=== PATIENT | male | born 1985 | race Asian ===

== ENCOUNTER → 2016-10-02 | Outpatient (CLI) | payer BC ==
--- NOTE | 2016-10-02 10:49 | RAD ---
CT of the abdomen and pelvis without contrast, 10/02/2016: History: Left flank pain Noncontrast scans were obtained through the urinary tract utilizing the renal stone protocol. This is a limited study for evaluation of the possibility of urinary tract calculi. Comparison is made to a study from 01/15/2016. A tiny 2 mm intrarenal calculus is again noted on the right. No left renal calculi are seen. The renal collecting systems are not dilated. The upper ureters are unremarkable. The distal ureters cannot be clearly traced through the pelvis in this patient. No radiopacity is seen along the course of either ureter to suggest a ureteral calculus. The partially filled urinary bladder is unremarkable. The unopacified liver is unremarkable. No dense gallstones are seen. The pancreas cannot be clearly from adjacent unopacified bowel. The spleen is within normal limits in size. The uterus is retroverted. A small amount of free fluid is present in the pelvis. This amount of fluid can be on a physiologic basis. The bowel loops are not dilated. The appendix is not clearly visualized, however, no dilated appendix is seen. Several small mesenteric lymph nodes are identified without pathologic enlargement. No free air is evident in the abdomen or pelvis. IMPRESSION: 1. Single small nonobstructing right intrarenal calculus. 2. No obstructing urinary tract calculi are identified. 3. Trace amount of free fluid in the pelvis. PQRS Compliance Statement: One or more of the following individualized dose reduction techniques were utilized for this examination: 1. Automated exposure control 2. Adjustment of the mA and/or kV according to patient size 3. Use of iterative reconstruction technique
== END | disposition home or self-care (01) ==
LOC: CT 10:08
PROVIDERS: ATTEND Physician Assistant
DX: N20.0 Calculus of kidney (principal)
CPT/HCPCS: 74176

== ENCOUNTER → 2017-06-02 | Outpatient (CLI) | payer BC ==
[~2017-06-02] MED LIST: IOHEXOL 240 MG/ML 50ML VIAL. PO ONE; IOHEXOL 300 MG/ML 75 ML VIAL. IV ONE
--- NOTE | 2017-06-02 12:58 | RAD ---
CT study of the abdomen and pelvis with contrast Clinical indications: Abdominal pain for 2 weeks. TECHNIQUE: After IV infusion of 73 cc of Omnipaque 300, helical CT scanning of the abdomen and pelvis was performed. GI contrast was administered per mouth. PQRS compliance Statement One or more of the following individualized dose reduction techniques were utilized for this study: 1. Automated exposure control 2. Adjustment of the mA and/or kV according to patient size 3. Use of iterative reconstruction technique COMPARISON: October 02, 2016 CT study. FINDINGS: The liver and spleen and pancreas and gallbladder are normal. No extrahepatic biliary ductal dilatation is seen. No adrenal mass is evident. Tiny nonobstructing punctate stone of the mid aspect of the right kidney is seen. No renal mass is evident. The urinary bladder wall is smooth. No focal aneurysmal dilatation of the abdominal aorta is seen. No enlarged abdominal or pelvic lymphadenopathy is seen. Enhancing varicosities of both adnexa is seen. Right ovarian cysts are evident. The largest measures 2.2 cm. No free fluid is seen around the right ovary or within the cul-de-sac. There is some wall thickening of the proximal sigmoid colon. Mild pericolonic inflammatory change is seen here. This is consistent with diverticulitis. No abscess or free free air or bowel obstruction is seen. No lung base consolidation is evident. No osteolytic process is seen. IMPRESSION: There is mild short segment wall thickening of the proximal sigmoid colon with mild pericolonic inflammatory change consistent with diverticulitis. This area is not well visualized on the previous study since the colon was not distended on the previous noncontrast exam. A colonic neoplasm may have this appearance. Therefore, recommend colonoscopy if this has not been performed recently. This is seen on images 51 through 56 and series 2. 2.2 cm right ovarian cyst without free fluid Retroflexed uterus. Bilateral adnexal varices which may be seen with pelvic congestion syndrome. Electronically signed by: Tong Burton MD (06/02/2017 12:55 PM) [place] [id number]
== END | disposition home or self-care (01) ==
LOC: EDSEX 08:45 → CT 08:45
PROVIDERS: ATTEND Nurse Practitioner Adult Health
DX: N83.201 Unspecified ovarian cyst, right side (principal)
CPT/HCPCS: 74177; Q9967